=== PATIENT | female | born 1960 | race Caucasian/White ===

== ENCOUNTER → 2024-04-15 | Outpatient (CLI) | payer OTHER ==
--- NOTE | 2024-04-15 11:38 | BD ---
EXAMINATION TYPE: Axial Bone Density DATE OF EXAM: 04/15/2024 CLINICAL HISTORY: 64 years old Female. ICD-10 CODE: Z78.0 MENOPAUSAL STATE Height: 5 ft 4 in Weight: 197 FRAX RISK QUESTIONS: Alcohol (3 or more units per day): no Family History (Parent hip fracture): no Glucocorticoids (More than 3mos): no (Ex: prednisone, prednisolone, methylprednisolone, dexamethasone, and hydrocortisone). History of Fracture in Adulthood: no Secondary Osteoporosis: 1. Type 1 Diabetes: no 2. Hyperthyroidism: no 3. Menopause before 45: no 4. Malnutrition: no 5. Chronic liver disease: no Rheumatoid Arthritis: no Current Tobacco Use: no RISK FACTORS HISTORY OF: Surgery to Spine/Hip(right/left)/Wrist (right/left): no MEDICATIONS: Thyroid Medications: none Osteoporosis Medications: none EXAM MEASUREMENTS: Bone mineral densitometry was performed using the [employer] System. Bone mineral density as measured about the Lumbar spine is: ----- L1-L4(G/cm2): 1.250 T Score Values are as follows: ----- L1: 0.5 ----- L2: 0.1 ----- L3: 1.2 ----- L4: 0.4 ----- L1-L4: 0.6 Z Score Values are as follows: ----- L1: 1.3 ----- L2: 0.9 ----- L3: 2.0 ----- L4: 1.2 ----- L1-L4: 1.4 baseline Bone mineral density about the R hip (g/cm2): 0.930 Bone mineral density about the L hip (g/cm2): 0.949 T Score values are as follows: -----R Neck: -0.8 -----L Neck: -0.6 -----R Total: 0.2 -----L Total: 0.3 Z Score values are as follows: -----R Neck: 0.2 -----L Neck: 0.3 -----R Total: 0.9 -----L Total: 0.9 baseline FRAX%s: The graph provided illustrates a 7.3 % chance for a major osteoporotic fx and a 0.4 % chance for the hips probability for fx in 10 years time. IMPRESSION: Normal (Values between +1 and -1 indicate normal bone mass). Consider repeating this study in 5 year s or sooner if there is some new clinical indication. NOTE: T-SCORE=SD OF THE YOUNG ADULT MEAN. [facility], , 04/15/2024 11:36 AM
--- NOTE | 2024-04-28 17:21 | MM ---
Reason for Exam: Screening (asymptomatic). Last mammogram was performed 1 year(s) and 6 month(s) ago. Patient History: Menarche at age 13. First Full-Term at age 18. Postmenopausal. Risk Values: Frida 5 year model risk: 1.4%. NCI Lifetime model risk: 4.9%. Prior Study Comparison: 11/16/2020 Bilateral Screening Mammogram, Donald Pérez. 10/31/2022 Bilateral Screening Mammogram, Donald Pérez. Tissue Density: The breasts are heterogeneously dense, which may obscure small masses. Findings: Analyzed By CAD. Superior symmetric density right MLO view anterior to middle depth is unchanged when compared to the 10/31/2022 exam. There is nodular asymmetric density superior subareolar right MLO view which is more defined. An additional small focal asymmetry posterior upper quadrant right breast is more defined. Further evaluation recommended. Nodular asymmetric density central outer left cc view anterior to middle depth not clearly seen previously. Further evaluation recommended. Overall Assessment: Incomplete: need additional imaging evaluation, BI-RAD 0 Management: Special View Mammogram of both breasts. Diagnostic Breast Ultrasound of both breasts. [facility] will attempt to contact patient to return for supplemental views and ultrasound if indicated. [facility], , 04/28/2024 5:18 PM. Electronically signed and approved by: Comfort Colin M.D. Radiologist
== END | disposition home or self-care (01) ==
LOC: RADMAMWWP 08:32
PROVIDERS: ATTEND Family Medicine
CPT/HCPCS: 77067; 77080

== ENCOUNTER → 2024-09-07 | Outpatient (CLI) | payer MEDICARE, BC ==
[2024-09-07 11:22] LABS: Total Eosinophil Count 167 #EOS/uL (150-300)
[2024-09-07 15:41] LABS: Erythrocyte Sedimentation Rate 21 mm/Hr (0-30)
[2024-09-07 19:16] LABS: Alternaria alternata IgE <0.10 kU/L; Aspergillus fumagatus IgE <0.10 kU/L; Birch IgE <0.10 kU/L; Cat Epith & Dander IgE <0.10 kU/L; Cladosporian herbarum IgE <0.10 kU/L; Cockroach IgE <0.10 kU/L; Dermato. farinae IgE <0.10 kU/L; Dog Dander IgE <0.10 kU/L; Elm IgE <0.10 kU/L; Maple (Box Elder) IgE <0.10 kU/L; Oak IgE <0.10 kU/L; Ragweed,Common IgE <0.10 kU/L; Red Top (Bentgrass) IgE <0.10 kU/L
[2024-09-07 22:52] LABS: Aspergillus fumagatus IgE <0.10 kU/L
== END | disposition home or self-care (01) ==
LOC: LABWHC1 09:57
PROVIDERS: ATTEND Internal Medicine Critical Care Medicine
DX: J47.9 Bronchiectasis, uncomplicated (principal)
CPT/HCPCS: 36415; 82785; 82787; 85008; 85652; 86003; 86038; 86431; 86606